=== PATIENT | female | born 2005 | race Hispanic/Latino ===

== ENCOUNTER 2025-05-31 14:38 | Emergency (ER) | payer SELFPAY ==
[~2025-05-31 14:38] MED LIST: Iopamidol-370 76% 500 ML MDV (1 ML CHARGE) ONE
[2025-05-31 16:53] LABS: #Basophils 0.06 10x3/uL (0.0-0.2); #Eosinophils 2.11 10x3/uL (0.0-0.7); #Monocytes 0.48 10x3/uL (0.11-0.59); #Neutrophils 3.61 10x3/uL (1.40-6.50); %Basophils 0.7 % (0.0-1.0); %Eosinophils 24.0 % (0.0-10.0); %Lymphocytes 28.8 % (28.0-48.0); %Monocytes 5.4 % (0.0-4.0); %Neutrophils 41.0 % (31.0-61.0); Hematocrit 41.1 % (36.0-47.0); Hemoglobin 13.5 g/dL (12.0-16.0); Mean Corpuscular Hemoglobin 30.7 pg (25.0-35.0); Mean Corpuscular Volume 93.4 fL (78.0-98.0); Platelet Count 224 10x3/uL (130-400); Red Blood Cell (RBC) Count 4.40 mill/uL (4.00-5.20); White Blood Cell (WBC) Count 8.81 10x3/uL (4.8-10.8)
[2025-05-31] MEDS ORDERED: Ondansetron PF 4 MG/2 ML Vial ONE (17:05)
[2025-05-31] MEDS ORDERED: Famotidine/PF 20 mg/2ml Vial ONE ×2 (17:06→17:09)
[2025-05-31 17:09] LABS: ALT (SGPT) 9 U/L (Less than 34); AST (SGOT) 15 U/L (11-34); Albumin 4.2 g/dL (3.1-4.5); Alkaline Phosphatase 60 U/L (40-100); Anion Gap 10 mmol/L (10-20); BUN (Urea Nitrogen) 9 mg/dL (7.0-18.7); Bilirubin, Total 0.5 mg/dL (0.3-1.2); Calc. Creatinine Clearance 0 mL/min (70-130); Calcium 9.1 mg/dL (7.8-10.44); Carbon Dioxide 27 mmol/L (22-29); Chloride 104 mmol/L (98-107); Globulin 3.2 g/dL (2.4-3.5); Glucose 61 mg/dL (70-105); Lipase 15 U/L (8-78); Potassium 3.7 mmol/L (3.5-5.1); Sodium 137 mmol/L (136-145)
[2025-05-31 17:27] LABS: Pregnancy Test - Urine (BHCG) Negative (Negative); Pregu Control Background? CLEAR/WHITE (CLR/WHITE); Pregu Control Bar Appear? YES (CONTROL BAR)
[2025-05-31 17:29] LABS: CAUTI Indications for Culture Dysuria,urgency,freq; Glucose, Urine (Dipstick) Normal (Negative); Leukocyte 75 Leu/uL (Negative); Protein, Urine (Dipstick) Negative (Neg-Trace); Specific Gravity, Urine 1.011 (1.002-1.036)
[2025-05-31 17:30] LABS: Bacteria/HPF 1+ HPF (None Seen)
[2025-05-31 17:31] LABS: Urine Culture Reflex Yes Yes
[2025-05-31] MEDS ORDERED: Famotidine 20 MG TAB ONE (17:39)
== END 2025-05-31 18:02 | disposition home or self-care (01) ==
LOC: ERS 14:38
DX: N39.0 Urinary tract infection, site not specified (principal); R11.2 Nausea with vomiting, unspecified
CPT/HCPCS: 36415; 74177; 76705; 80053; 81001; 81025; 83690; 85025; 87086; J1308; J2405; Q0162; Q9967